=== PATIENT | female | born 1985 | race Caucasian/White ===

== ENCOUNTER 2023-04-12 11:17 | Emergency (ER) | payer MEDICAID ==
[~2023-04-12] VITALS: Ht 147.3 cm; Wt 47.6 kg
[2023-04-12 11:27] VITALS: BP 81/62; PULSE 87; RESP 16; TEMP 97.6; O2SAT 94
[2023-04-12 12:18] VITALS: BP 80/43; PULSE 80; RESP 13; TEMP 97.6; O2SAT 94
== END 2023-04-12 12:18 | disposition home or self-care (01) ==
LOC: MED 11:17
DX: R18.8 Other ascites (principal); Z79.899 Other long term (current) drug therapy
CPT/HCPCS: 99281